=== PATIENT | male | born 1970 | race Caucasian/White ===

== ENCOUNTER 2020-08-01 06:43 | Inpatient (IN) | payer BC ==
[2020-08-01 07:31] LABS: #Eosinphils 0.1 thou/uL (0.0-0.7); #Lymphocytes 0.7 thou/uL (1.20-3.40); #Monocytes 0.5 thou/uL (0.11-0.59); #Neutrophils 9.1 thou/uL (1.40-6.50); %Eosinophils 0.5 % (0.0-10.0); %Lymphocytes 6.6 % (21.0-51.0); %Monocytes 4.5 % (0.0-10.0); %Neutrophils 88.3 % (42.0-75.0); Hemoglobin 16.8 g/dL (14.0-18.0); Mean Corpuscular HGB CONC 33.6 g/dL (32.0-36.0); Mean Corpuscular Volume 89.3 fL (78.0-98.0); Mean Platelet Volume 8.4 fL (7.4-10.4); Platelet Count 159 thou/uL (130-400); RBC Distribution Width 12.5 % (11.5-14.5); Red Blood Cell (RBC) Count 5.62 mill/uL (4.70-6.10); White Blood Cell (WBC) Count 10.2 thou/uL (4.8-10.8)
[2020-08-01 08:17] LABS: ALT (SGPT) 133 U/L (8-55); AST (SGOT) 97 U/L (5-34); Albumin 4.6 g/dL (3.5-5.0); Alkaline Phosphatase 213 U/L (40-110); Anion Gap 17 mmol/L (10-20); BUN (Urea Nitrogen) 16 mg/dL (8.4-25.7); Bilirubin, Total 2.1 mg/dL (0.2-1.2); Calc. Creatinine Clearance 0 mL/min (70-130); Calcium 9.5 mg/dL (7.8-10.44); Carbon Dioxide 24 mmol/L (22-29); Chloride 99 mmol/L (98-107); Globulin 3.3 g/dL (2.4-3.5); Glucose 319 mg/dL (70-105); Lipase 27 U/L (8-78); Potassium 3.6 mmol/L (3.5-5.1); Protein, Total 7.9 g/dL (6.0-8.3); Sodium 136 mmol/L (136-145)
[2020-08-01] MEDS ORDERED: Ondansetron PF 4 MG/2 ML Vial ONE (10:20)
[2020-08-01] MEDS ORDERED: Morphine 4 MG/ML VIAL ONE (10:20)
[2020-08-01] MEDS ORDERED: Metoprolol Tartrate 50 MG TAB ONE ×2 (10:45→10:53)
[2020-08-01] MEDS ORDERED: Loperamide HCl 2 MG CAP PO PRN (12:21)
[2020-08-01] MEDS ORDERED: Acetaminophen 325 MG TAB PO PRN (12:21)
[2020-08-01] MEDS ORDERED: Zolpidem Tartrate 5 MG TAB PO PRN (12:21)
[2020-08-01] MEDS ORDERED: Ondansetron ODT 4 MG TAB PO PRN (12:21)
[2020-08-01] MEDS ORDERED: Ondansetron PF 4 MG/2 ML Vial IVP PRN (12:21)
[2020-08-01] MEDS ORDERED: HYDROcodone/Acetaminophen 5/325 mg Tablet PO PRN (12:21)
[2020-08-01] MEDS ORDERED: Calcium Carbonate 500 MG ChewTAB PO PRN (12:21)
[2020-08-01] MEDS ORDERED: Bisacodyl 10 MG SUPP PR PRN (12:21)
[2020-08-01] MEDS ORDERED: Senokot S 8.6-50 MG TAB PO PRN (12:21)
[2020-08-01] MEDS ORDERED: Guaifenesin DM 100-10/5 ML UDCUP PO PRN (12:21)
[2020-08-01 12:51] LABS: Bilirubin Negative (Negative); Blood, Urine Negative (Negative); Clarity Clear (Clear); Glucose, Urine (Dipstick) Greater than 1000 mg/dL (Negative); Ketone, Urine 10 mg/dL (Negative); Leukocyte Negative Leu/uL (Negative); Nitrite Negative (Negative); Protein, Urine (Dipstick) 20 mg/dL (Neg-Trace); Specific Gravity, Urine 1.039 (1.002-1.036); Urobilinogen Normal mg/dL (Less than 2)
[2020-08-01] MEDS ORDERED: Dextrose 5% in Water 1,000 ML IV PRN (13:03)
[2020-08-01] MEDS ORDERED: Promethazine HCl 12.5 MG in Sodium Chloride 0.9% 50 ML IVPB PRN (13:03)
[2020-08-01] MEDS ORDERED: HumaLOG 300 UNITS/3 ML VIAL SC PRN ×2 (13:03)
[2020-08-01] MEDS ORDERED: Dextrose 50% Abboject 50 ML SYRINGE SLOW IVP PRN (13:03)
[2020-08-01 15:32] LABS: HBCM Index 0.07 S/CO (0-0.79); HBSAg Index 0.18 S/CO (0-0.99); Hep A IgM AB Non-Reactive (NonReactive); Hep A IgM S/CO 0.11 S/CO (0-0.79); Hep B Surf Ag Non-Reactive S/CO (NonReactive); Hep C IgG Ab Non-Reactive (NonReactive); Hep C Index 0.15 S/CO (0-0.79); Hepatitis B Core IgM Abs Non-Reactive (NonReactive)
[2020-08-01 16:01] VITALS: BMI 29.6
[2020-08-01 16:05] LABS: Hemoglobin A1c 9.5 % (4.0-6.0)
[2020-08-01] MEDS: Sodium Chloride 0.9% 1,000 ML IV SCH (17:14)
[2020-08-01] MEDS: Famotidine 20 MG TAB PO SCH (20:27)
[2020-08-02 05:22] LABS: SARS-CoV-2 PCR by NAA Not Detected (NotDetected)
[2020-08-02] MEDS: Sodium Chloride 0.9% 1,000 ML IV SCH ×2 (05:39→15:27)
[2020-08-02 06:26] LABS: #Lymphocytes 0.9 thou/uL (1.20-3.40); #Monocytes 0.5 thou/uL (0.11-0.59); #Neutrophils 2.7 thou/uL (1.40-6.50); %Basophils 0.6 % (0.0-1.0); %Eosinophils 0.4 % (0.0-10.0); %Lymphocytes 22.1 % (21.0-51.0); %Monocytes 12.7 % (0.0-10.0); %Neutrophils 64.2 % (42.0-75.0); Mean Corpuscular Hemoglobin 30.8 pg (27.0-31.0); Mean Corpuscular Volume 90.4 fL (78.0-98.0); Mean Platelet Volume 7.7 fL (7.4-10.4); Platelet Count 124 thou/uL (130-400); RBC Distribution Width 12.4 % (11.5-14.5); Red Blood Cell (RBC) Count 4.89 mill/uL (4.70-6.10); White Blood Cell (WBC) Count 4.2 thou/uL (4.8-10.8)
[2020-08-02 06:51] LABS: ALT (SGPT) 119 U/L (8-55); AST (SGOT) 93 U/L (5-34); Albumin 3.8 g/dL (3.5-5.0); Alkaline Phosphatase 143 U/L (40-110); Anion Gap 14 mmol/L (10-20); BUN (Urea Nitrogen) 15 mg/dL (8.4-25.7); Bilirubin, Total 1.1 mg/dL (0.2-1.2); Calc. Creatinine Clearance 129 mL/min (70-130); Calcium 8.3 mg/dL (7.8-10.44); Carbon Dioxide 27 mmol/L (22-29); Chloride 99 mmol/L (98-107); Globulin 2.6 g/dL (2.4-3.5); Glucose 173 mg/dL (70-105); Protein, Total 6.4 g/dL (6.0-8.3); Sodium 138 mmol/L (136-145)
[2020-08-02 06:54] LABS: Potassium 2.4 mmol/L (3.5-5.1)
[2020-08-02] MEDS ORDERED: Electrolyte Replacement Protocol FS PRN (07:30)
[2020-08-02] MEDS ORDERED: Potassium Chloride 40 MEQ in Premix Bag 1 BAG IVPB SCH (08:00)
[2020-08-02] MEDS ORDERED: Potassium Chloride 40 MEQ in Sodium Chloride 0.9% 250 ML 250 ML IVPB SCH ×2 (08:45→12:45)
[2020-08-02] MEDS: Famotidine 20 MG TAB PO SCH ×2 (09:26→21:18)
[2020-08-02 14:50] LABS: Potassium 3.3 mmol/L (3.5-5.1)
[2020-08-02] MEDS ORDERED: Lidocaine 1% w/Epinephrine 1:100K 20 ML VIAL ONE (16:52)
[2020-08-02] MEDS ORDERED: Bupivacaine 0.25% HCL 30 ML VIAL ONE (16:52)
[2020-08-02] MEDS ORDERED: Iothalamate Meglumine 60% 50 ML VIAL FS ONE (16:52)
[2020-08-02] MEDS ORDERED: Midazolam HCl 2 mg/2 ml Vial ONE (17:15)
[2020-08-02] MEDS ORDERED: Fentanyl 100 MCG/2 ML VIAL ONE ×2 (17:15→20:06)
[2020-08-02] MEDS ORDERED: Lidocaine 1% PF 5 ML VIAL ONE (18:19)
[2020-08-02] MEDS ORDERED: Ondansetron PF 4 MG/2 ML Vial ONE (18:19)
[2020-08-02] MEDS ORDERED: PROPOFOL 200 MG/20 ML VIAL ONE (18:19)
[2020-08-02] MEDS ORDERED: Rocuronium Bromide 10 MG/ML (10ML VIAL) ONE (18:19)
[2020-08-02] MEDS ORDERED: Succinylcholine 200 MG/10 ml SYRINGE FS ONE (18:19)
[2020-08-02] MEDS ORDERED: traMADol HCl 50 MG TAB PO PRN ×2 (20:42)
[2020-08-02] MEDS ORDERED: Morphine 4 MG/ML VIAL SLOW IVP PRN (20:42)
[2020-08-02] MEDS: Morphine 2 MG/ML VIAL SLOW IVP PRN (22:17)
[2020-08-03 07:09] VITALS: TEMP 98.9
[2020-08-03 07:48] LABS: ALT (SGPT) 100 U/L (8-55); AST (SGOT) 78 U/L (5-34); Albumin 3.6 g/dL (3.5-5.0); Alkaline Phosphatase 127 U/L (40-110); Anion Gap 11 mmol/L (10-20); BUN (Urea Nitrogen) 13 mg/dL (8.4-25.7); Bilirubin, Total 1.1 mg/dL (0.2-1.2); Calc. Creatinine Clearance 119 mL/min (70-130); Calcium 8.4 mg/dL (7.8-10.44); Carbon Dioxide 31 mmol/L (22-29); Chloride 98 mmol/L (98-107); Globulin 2.5 g/dL (2.4-3.5); Glucose 149 mg/dL (70-105); Protein, Total 6.1 g/dL (6.0-8.3); Sodium 137 mmol/L (136-145)
[2020-08-03 07:56] LABS: Potassium 2.8 mmol/L (3.5-5.1)
[2020-08-03 08:02] LABS: #Lymphocytes 0.9 thou/uL (1.20-3.40); #Monocytes 0.6 thou/uL (0.11-0.59); #Neutrophils 2.8 thou/uL (1.40-6.50); %Eosinophils 0.5 % (0.0-10.0); %Lymphocytes 21.1 % (21.0-51.0); %Monocytes 13.6 % (0.0-10.0); %Neutrophils 64.7 % (42.0-75.0); Hemoglobin 14.3 g/dL (14.0-18.0); Mean Corpuscular HGB CONC 33.6 g/dL (32.0-36.0); Mean Corpuscular Hemoglobin 30.6 pg (27.0-31.0); Mean Corpuscular Volume 91.1 fL (78.0-98.0); Mean Platelet Volume 7.9 fL (7.4-10.4); Platelet Count 132 thou/uL (130-400); RBC Distribution Width 12.6 % (11.5-14.5); Red Blood Cell (RBC) Count 4.66 mill/uL (4.70-6.10); White Blood Cell (WBC) Count 4.3 thou/uL (4.8-10.8)
[2020-08-03] MEDS: Potassium Chloride 20 MEQ TAB PO SCH ×2 (08:27→13:30)
[2020-08-03] MEDS: Famotidine 20 MG TAB PO SCH (08:28)
[2020-08-03] MEDS: Morphine 2 MG/ML VIAL SLOW IVP PRN (08:34)
[2020-08-03] MEDS ORDERED: FLUoxetine HCl 20 MG CAP PO SCH (09:00)
[2020-08-03] MEDS ORDERED: Metoprolol Tartrate 100 MG TAB PO SCH (09:00)
[2020-08-03 11:31] VITALS: BP 131/76
== END 2020-08-03 14:17 | disposition home or self-care (01) | DRG 419 ==
LOC: ERS 06:43 → ERHOLD 11:39 → T4-A 14:26 → OBSVTOIN 08-02 07:58
PROVIDERS: ADMIT Internal Medicine; ATTEND Hospitalist
PROC: 0FT44ZZ Resection of Gallbladder, Percutaneous Endoscopic Approach (ICD-10-PCS; principal; 2020-08-03)
PROC: BF131ZZ Fluoroscopy of Gallbladder and Bile Ducts using Low Osmolar Contrast (ICD-10-PCS; 2020-08-03)
DX: K82.8 Other specified diseases of gallbladder (principal); I10 Essential (primary) hypertension; K21.9 Gastro-esophageal reflux disease without esophagitis; K83.8 Other specified diseases of biliary tract; E66.9 Obesity, unspecified; R74.01 Elevation of levels of liver transaminase levels; E11.9 Type 2 diabetes mellitus without complications; E87.6 Hypokalemia; Z20.822 Contact with and (suspected) exposure to COVID-19; K76.0 Fatty (change of) liver, not elsewhere classified; Z88.0 Allergy status to penicillin; Z98.890 Other specified postprocedural states; Z68.29 Body mass index [BMI] 29.0-29.9, adult; Z86.711 Personal history of pulmonary embolism
CPT/HCPCS: 36415; 36416; 47532; 71045; 76705; 80053; 80074; 81003; 83036; 83690; 84484; 85025; 87635; 88304; 93005; 96374; 96375; G0378; J0690; J1815; J2250; J2270; J2405; J2704; J3010; J3480; J7050; Q9961; S0020; U0003; U0005